=== PATIENT | female | born 1950 | race Caucasian/White ===

== ENCOUNTER 2019-07-27 09:36 | Outpatient (CLI) | payer MEDICARE, OTHER, SELFPAY ==
--- NOTE | 2019-07-27 13:44 | PT-OP ANOTE ---
Patient seen for wheelchair evaluation only. See paper copy in her chart.
== END 2019-08-25 13:14 | disposition home or self-care (01) ==
LOC: PHYS 09:39
PROVIDERS: PCP Registered Nurse; Referring Provider Registered Nurse; Visit Provider Registered Nurse
DX: M21.072 Valgus deformity, not elsewhere classified, left ankle (principal); I87.2 Venous insufficiency (chronic) (peripheral); I69.952 Hemiplegia and hemiparesis following unspecified cerebrovascular disease affecting left dominant side
CPT/HCPCS: 97162